=== PATIENT | male | born 1980 | race Caucasian/White ===

== ENCOUNTER 2021-03-07 18:41 | Emergency (ER) | payer BC, SELFPAY ==
[2021-03-07 18:59] VITALS: BP 131/99; PULSE 71; RESP 18; TEMP 36.5; O2SAT 100
--- NOTE | 2021-03-07 19:06 | ED.BACK ---
HPI - Back Pain/Injury General Chief Complaint: Back Pain/Injury Stated Complaint: back pain Source: patient and RN notes reviewed Limitations: no limitations History of Present Illness HPI Narrative: The patient, previously mostly healthy, presents with back pain. Patient states during the holidays he has been carrying more heavy objects; then he lifted up his child and had the onset of middle back pain. No radiation pain, numbness/weakness, hematuria, bowel?bladder symptoms, frequency/dysuria. Symptoms are mild, worse with activity better with rest and similar to prior back pain has had previously Vital signs stable with BP 131/99. The patient has been informed that they may have pre-hypertension or Hypertension based on a BP reading in the department. I recommend that the patient call the primary care provider listed on their discharge instructions or a physician of their choice this week to arrange follow up for further evaluation of possible pre-hypertension or Hypertension Related Data Allergies Allergy/AdvReac Type Severity Reaction Status Date / Time No Known Allergies Allergy Verified 03/07/21 18:58 Review of Systems Review of Systems: General/Constitutional: No weight loss,fever Eyes: N0: Redness,discharge Ears/Nose/Throat: No: Epistaxis,ear discharge Respiratory: Denies: Hemoptysis Gastrointestinal: No Vomiting, Bleeding-rectal Skin: No Lumps, eruption Neurologic: No Focal Weakness,Sz Hematologic: Denies: Petechiae/Purpura Psychiatric: No: Suicida ideationl All Other Systems: Reviewed and Negative Exam Narrative: General Appearance: Well appearing, Well nourished Nose: Normal nose Mouth/Throat: Normal appearing, Normal lips,: Supple Respiratory: Airway patent Abdomen: Soft Musculoskeletal: Normal strength (no footdrop, 5/5 : EH L-FHL, gastroc-AT, no saddle weakness) Spine/Back: Paraspinal muscle tender (with mild decreased range of motion;theodore lumbo-sacral junction) Skin: Normal color Neurological: A&O x3, CN II-XII intact, Normal reflexes (symmetric, 2+ KJ, trace AJ) Psychiatric: Normal mood Course Vital Signs Vital signs: Vital Signs Temperature 97.7 F 03/07/21 18:59 Pulse Rate 71 03/07/21 18:59 Respiratory Rate 18 03/07/21 18:59 Blood Pressure 131/99 H 03/07/21 18:59 Pulse Oximetry 100 03/07/21 18:59 Temperature 97.7 F 03/07/21 18:59 Pulse Rate 71 03/07/21 18:59 Respiratory Rate 18 03/07/21 18:59 Blood Pressure 131/99 H 03/07/21 18:59 Pulse Oximetry 100 03/07/21 18:59 Discharge Plan Discharge Clinical Impression: Strain of lumbar region Qualifiers: Encounter type: initial encounter Qualified Code(s): S39.012A - Strain of muscle, fascia and tendon of lower back, initial encounter Patient Disposition: Home, Self-Care Condition: Stable Instructions: Low Back Strain (ED) Prescriptions: New prednisone 20 mg tablet 60 mg PO DAILY Qty: 15 RF: 0 tramadol 50 mg tablet 50 - 75 mg PO TID PRN (Reason: pain) Qty: 30 RF: 0 Follow-up/Referrals: Meng,Christopher Lazaro MD [Primary Care Provider] -
== END 2021-03-07 19:19 | disposition home or self-care (01) ==
PROVIDERS: Emergency Provider Emergency Medicine; PCP Internal Medicine
DX: S39.012A Strain of muscle, fascia and tendon of lower back, initial encounter (principal); X50.9XXA Other and unspecified overexertion or strenuous movements or postures, initial encounter
CPT/HCPCS: 99213; G0463

== ENCOUNTER 2023-03-02 08:59 | Emergency (ER) | payer BC, SELFPAY ==
[2023-03-02 09:43] VITALS: BP 118/84; PULSE 75; RESP 18; TEMP 36.2; O2SAT 100
--- NOTE | 2023-03-02 09:45 | ED.BACK ---
HPI - Back Pain/Injury General Chief Complaint: Back Pain/Injury Stated Complaint: lower back pain Time Seen by Provider: 03/02/23 09:45 Source: patient Mode of arrival: ambulatory Limitations: no limitations History of Present Illness HPI Narrative: Oscar is a 42-year-old male patient presenting to the clinic today with complaints of low back pain x 1 day. He reports 2 days ago he was helping his family member with a garage door. Reports that the gradual or sprain broke so the garage door had to be manually lifted. Pressure reports that they rash or is very heavy and when he manually lifted the garage door he twisted his back. States that he did not start having back pain until the next day when he felt a pop in his back. Denies any saddle anesthesia or numbness and tingling in the groin. Denies any loss of bowel or bladder Related Data Allergies Allergy/AdvReac Type Severity Reaction Status Date / Time No Known Allergies Allergy Verified 03/02/23 09:52 Review of Systems Review of Systems: Pertinent positives per HPI. Patient denies any fever, chills, rash, headache, visual changes, dizziness, cough, runny nose, sore throat, shortness of breath, chest pain, palpitations, nausea, vomiting, diarrhea, constipation, abdominal pain, or any urinary issues. 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 There is no relevant family history pertinent to the patient complaint. Exam Narrative: General: Well-developed, well nourished, in no apparent distress Head: Normocephalic, atraumatic. Cardio: Regular rate and rhythm, s1 and s2 normal, no murmur appreciated. Resp: Clear to auscultation bilaterally, no rhonchi, rales, wheezing or rubs. Musculoskeletal: No deformity,tender to palpation over the mid lower lumbar spine over L4-L5, positive straight leg test on the right at 60?, grossly normal range of motion, patellar reflexes 2+ bilateral, bilateral lower muscle strength strong and equal, peripheral pulse strong, no edema, no cyanosis, normal gait and station Course Course Emergency Course: Portions of this record may have been created with voice recognition software. Level of Care: Express Care Visit Vital Signs Vital signs: Vital Signs Temperature 36.2 C L 03/02/23 09:43 Pulse Rate 75 03/02/23 09:43 Respiratory Rate 18 03/02/23 09:43 Blood Pressure 118/84 03/02/23 09:43 Pulse Oximetry 100 03/02/23 09:43 Oxygen Delivery Room Air 03/02/23 09:43 Temperature 36.2 C L 03/02/23 09:43 Pulse Rate 75 03/02/23 09:43 Respiratory Rate 18 03/02/23 09:43 Blood Pressure 118/84 03/02/23 09:43 Pulse Oximetry 100 03/02/23 09:43 Oxygen Delivery Room Air 03/02/23 09:43 Vital signs reviewed MDM - Back Pain/Injury MDM Narrative Medical decision making narrative: At the time of visit patient is resting comfortably on the exam table. I suspect patient has the lumbar strain. Prescription for Flexeril and Medrol Dosepak was sent to the pharmacy. Supportive measures were discussed with the patient he voiced understanding discharge instructions and agrees to treatment plan. Return precautions were reviewed Differential Diagnosis Differential diagnosis: Likely lumbar radiculopathy, sciatica, strain of lumbar region and discitis Discharge Plan Discharge Clinical Impression: Lumbar strain Qualifiers: Encounter type: initial encounter Qualified Code(s): S39.012A - Stra
== END 2023-03-02 10:02 | disposition home or self-care (01) ==
PROVIDERS: Emergency Provider Nurse Practitioner Family; PCP Physician Assistant Medical
DX: S39.012A Strain of muscle, fascia and tendon of lower back, initial encounter (principal); X50.0XXA Overexertion from strenuous movement or load, initial encounter
CPT/HCPCS: 99213; G0463